=== PATIENT | male | born 1960 | race Caucasian/White ===

== ENCOUNTER 2017-06-15 08:03 | Emergency (ER) | payer BC, OTHER ==
[2017-06-15 09:03] LABS: ADD MAN DIFF? NO
[2017-06-15 09:05] LABS: WHITE BLOOD COUNT 5.9 10^3/ul (4.8-10.8)
[2017-06-15 09:05] LABS: BASOPHILS % 0.7 % (0.0-2.0); EOSINOPHILS % 0.5 % (0.0-7.0); HEMATOCRIT 38.3 % (42.0-52.0); HEMOGLOBIN 12.4 g/dl (14.0-18.0); LYMPHOCYTES # 1.3 10^3/ul (0.8-2.9); LYMPHOCYTES % 21.3 % (15.0-51.0); MEAN CORPUSCULAR HGB CONC 32.4 g/dl (32.0-37.0); MEAN PLATELET VOLUME 9.7 fl (7.4-10.4); MONOCYTE # 0.5 10^3/ul (0.3-0.9); MONOCYTES % 8.7 % (0.0-11.0); NEUTROPHILS % 68.3 % (39.0-77.0); PLATELET COUNT 286 10^3/UL (140-415); RED BLOOD COUNT 3.87 10^6/ul (4.70-6.10); RED CELL DISTRIBUTION WIDTH 15.4 % (11.5-14.5)
[2017-06-15 09:35] LABS: ALANINE AMINOTRANSFERASE 44 IU/L (13-69); ALBUMIN 4.2 g/dl (3.3-4.9); ALBUMIN/GLOBULIN RATIO 1.44; ALKALINE PHOSPHATASE 91 IU/L (42-121); ANION GAP 15 (8-16); ASPARTATE AMINO TRANSFERASE 58 IU/L (15-46); BLOOD UREA NITROGEN 25 mg/dl (7-20); CALCIUM 8.9 mg/dl (8.4-10.2); CARBON DIOXIDE 27 mmol/L (21-31); CHLORIDE 107 mmol/L (97-110); CREATININE 1.18 mg/dl (0.61-1.24); GLUCOSE 108 mg/dl (70-220); POTASSIUM 3.4 mmol/L (3.5-5.1); SODIUM 146 mmol/L (135-144); TOTAL PROTEIN 7.1 g/dl (6.1-8.1)
[2017-06-15 09:46] LABS: B-TYPE NATRIURETIC PEPTIDE 567 PG/ML (0-125)
[2017-06-15 09:52] LABS: TROPONIN-I 0.153 ng/ml (0.00-0.12)
[2017-06-15] MEDS: ASPIRIN 81 MG TAB PO (10:19)
== END 2017-06-15 12:10 | disposition left against medical advice (07) ==
LOC: E/R 08:03
DX: I21.4 Non-ST elevation (NSTEMI) myocardial infarction (principal); R06.02 Shortness of breath
CPT/HCPCS: 36415; 71010; 80053; 83880; 84484; 85025; 93005; 99291-25

== ENCOUNTER 2017-06-28 04:18 | Inpatient (IN) | payer BC ==
[2017-06-28 05:00] LABS: ADD MAN DIFF? NO
[2017-06-28 05:01] LABS: WHITE BLOOD COUNT 7.4 10^3/ul (4.8-10.8)
[2017-06-28 05:01] LABS: BASOPHIL # 0.1 10^3/ul (0.0-0.1); BASOPHILS % 0.7 % (0.0-2.0); EOSINOPHILS # 0.1 10^3/ul (0.0-0.5); EOSINOPHILS % 0.7 % (0.0-7.0); HEMATOCRIT 36.4 % (42.0-52.0); HEMOGLOBIN 11.8 g/dl (14.0-18.0); LYMPHOCYTES % 13.7 % (15.0-51.0); MEAN CORPUSCULAR HGB CONC 32.4 g/dl (32.0-37.0); MEAN CORPUSCULAR VOLUME 98.6 fl (82.0-101.0); MEAN PLATELET VOLUME 9.9 fl (7.4-10.4); MONOCYTE # 0.6 10^3/ul (0.3-0.9); MONOCYTES % 8.5 % (0.0-11.0); NEUTROPHIL # 5.7 10^3/ul (1.6-7.5); NEUTROPHILS % 75.9 % (39.0-77.0); PLATELET COUNT 269 10^3/UL (140-415); RED BLOOD COUNT 3.69 10^6/ul (4.70-6.10); RED CELL DISTRIBUTION WIDTH 14.9 % (11.5-14.5)
[2017-06-28 05:22] LABS: ANION GAP 13 (8-16); BLOOD UREA NITROGEN 20 mg/dl (7-20); CALCIUM 8.3 mg/dl (8.4-10.2); CARBON DIOXIDE 26 mmol/L (21-31); CHLORIDE 110 mmol/L (97-110); CREATININE 0.96 mg/dl (0.61-1.24); GLUCOSE 95 mg/dl (70-220); POTASSIUM 3.2 mmol/L (3.5-5.1); SODIUM 146 mmol/L (135-144)
[2017-06-28 05:34] LABS: TROPONIN-I 0.038 ng/ml (0.00-0.12)
[2017-06-28] MEDS ORDERED: NACL 0.9% 3 ML SYG IV (06:00)
[2017-06-28] MEDS: POTASSIUM CHLORIDE (SR) 20 MEQ TAB PO (06:04)
[2017-06-28 08:17] LABS: CHOL/HDL RATIO 5.7 RATIO; HDL CHOLESTEROL 33 mg/dl (30-78); LDL CHOLESTEROL,CALCULATED 145 mg/dl; TRIGLYCERIDES 60 mg/dl (0-149)
[2017-06-28 08:17] LABS: CHOLESTEROL 190 mg/dl (100-200)
[2017-06-28 08:18] LABS: HEMOGLOBIN A1C 5.2 % (0-5.9)
[2017-06-28 08:49] LABS: THYROID STIMULATING HORMONE 0.551 MIU/L (0.465-4.680)
[2017-06-28] MEDS: METOPROLOL (XL) 50 MG TAB PO (08:50)
[2017-06-28] MEDS: LISINOPRIL 10 MG TAB PO ×2 (08:50→20:32)
[2017-06-28] MEDS: ASPIRIN 81 MG TAB PO (10:44)
[2017-06-28] MEDS ORDERED: IODIXANOL LOCM 100 ML BTL (11:17)
[2017-06-28] MEDS ORDERED: MIDAZOLAM 1 MG/ML 2 ML INJ ×2 (11:17→12:35)
[2017-06-28] MEDS ORDERED: LIDOCAINE 1% (MDV) 20 ML INJ (11:17)
[2017-06-28] MEDS ORDERED: FENTAnyl 50 MCG/ML VIAL (11:17)
[2017-06-28] MEDS ORDERED: AMLODIPINE 5 MG TAB PO (11:30)
[2017-06-28] MEDS ORDERED: VERAPAMIL 5 MG INJ (11:35)
[2017-06-28] MEDS ORDERED: NITROGLYCERIN (IC) 100 MCG/ML INJ (11:35)
[2017-06-28 11:46] LABS: D-DIMER 503.04 ng/ml (<460)
[2017-06-28 11:48] LABS: CREATINE KINASE 51 IU/L (23-200)
[2017-06-28 11:57] LABS: ANION GAP 11 (8-16); BLOOD UREA NITROGEN 18 mg/dl (7-20); CALCIUM 8.6 mg/dl (8.4-10.2); CARBON DIOXIDE 23 mmol/L (21-31); CHLORIDE 114 mmol/L (97-110); CREATININE 0.86 mg/dl (0.61-1.24); GLUCOSE 121 mg/dl (70-220); POTASSIUM 3.2 mmol/L (3.5-5.1); SODIUM 145 mmol/L (135-144)
[2017-06-28 11:59] LABS: CK INDEX 1.5; TROPONIN-I 0.051 ng/ml (0.00-0.12)
[2017-06-28 12:08] LABS: TROPONIN-I 0.064 ng/ml (0.00-0.12)
[2017-06-28 12:10] LABS: CK-MB 0.75 ng/ml (0.0-2.4)
[2017-06-28] MEDS: SOD CHLORIDE 0.9% 1,000 ML IV (13:04)
[2017-06-28] MEDS: METOPROLOL 25 MG TAB PO ×2 (14:15→20:33)
[2017-06-28] MEDS: hydrALAzine 20 MG INJ IV (14:44)
[2017-06-28] MEDS: ACETAMINOPHEN 325 MG TAB PO (16:58)
[2017-06-28] MEDS: NITROGLYCERIN (SL) 0.4 MG TAB SL (19:45)
[2017-06-28] MEDS: ATORVASTATIN 80 MG TAB PO (20:32)
[2017-06-28] MEDS: ISOSORBIDE DINITRATE 5 MG TAB PO (20:33)
[2017-06-29 07:20] LABS: ADD MAN DIFF? NO
[2017-06-29 07:23] LABS: WHITE BLOOD COUNT 5.4 10^3/ul (4.8-10.8)
[2017-06-29 07:23] LABS: BASOPHILS % 0.6 % (0.0-2.0); EOSINOPHILS % 0.4 % (0.0-7.0); HEMATOCRIT 34.5 % (42.0-52.0); HEMOGLOBIN 11.2 g/dl (14.0-18.0); LYMPHOCYTES # 1.3 10^3/ul (0.8-2.9); MEAN CORPUSCULAR HEMOGLOBIN 31.6 pg (29.0-33.0); MEAN CORPUSCULAR HGB CONC 32.5 g/dl (32.0-37.0); MEAN CORPUSCULAR VOLUME 97.5 fl (82.0-101.0); MEAN PLATELET VOLUME 9.6 fl (7.4-10.4); MONOCYTE # 0.6 10^3/ul (0.3-0.9); MONOCYTES % 11.2 % (0.0-11.0); NEUTROPHIL # 3.5 10^3/ul (1.6-7.5); NEUTROPHILS % 64.4 % (39.0-77.0); PLATELET COUNT 243 10^3/UL (140-415); RED BLOOD COUNT 3.54 10^6/ul (4.70-6.10)
[2017-06-29 07:41] LABS: ALANINE AMINOTRANSFERASE 47 IU/L (13-69); ALBUMIN 3.4 g/dl (3.3-4.9); ALBUMIN/GLOBULIN RATIO 1.41; ALKALINE PHOSPHATASE 58 IU/L (42-121); ANION GAP 11 (8-16); ASPARTATE AMINO TRANSFERASE 18 IU/L (15-46); BILIRUBIN,INDIRECT 0.1 mg/dl (0-1.1); BILIRUBIN,TOTAL 0.1 mg/dl (0.2-1.3); BLOOD UREA NITROGEN 20 mg/dl (7-20); CALCIUM 8.3 mg/dl (8.4-10.2); CARBON DIOXIDE 25 mmol/L (21-31); CHLORIDE 112 mmol/L (97-110); GLUCOSE 103 mg/dl (70-220); SODIUM 145 mmol/L (135-144); TOTAL PROTEIN 5.8 g/dl (6.1-8.1)
[2017-06-29] MEDS: METOPROLOL 25 MG TAB PO ×3 (09:13→20:43)
[2017-06-29] MEDS: ASPIRIN 81 MG TAB PO (09:13)
[2017-06-29] MEDS: POTASSIUM CHLORIDE (SR) 20 MEQ TAB PO ×2 (09:13→13:04)
[2017-06-29] MEDS: ISOSORBIDE DINITRATE 5 MG TAB PO ×3 (09:13→20:42)
[2017-06-29] MEDS: LISINOPRIL 10 MG TAB PO ×2 (09:14→20:44)
[2017-06-29] MEDS: ACETAMINOPHEN 325 MG TAB PO (18:21)
[2017-06-29] MEDS: ATORVASTATIN 80 MG TAB PO (20:39)
[2017-06-30] MEDS: hydrALAzine 20 MG INJ IV (00:10)
[2017-06-30] MEDS: NITROGLYCERIN (SL) 0.4 MG TAB SL ×9 (02:26→19:04)
[2017-06-30] MEDS: morphine 2 MG INJ IV (03:34)
[2017-06-30] MEDS: morphine 4 MG/ML VIAL IV (05:47)
[2017-06-30 07:24] LABS: TROPONIN-I 0.158 ng/ml (0.00-0.12)
[2017-06-30] MEDS: ASPIRIN 81 MG TAB PO (08:27)
[2017-06-30] MEDS: ISOSORBIDE DINITRATE 5 MG TAB PO ×2 (08:27→13:09)
[2017-06-30] MEDS: LISINOPRIL 10 MG TAB PO ×2 (08:27→21:44)
[2017-06-30] MEDS: METOPROLOL 25 MG TAB PO ×3 (08:30→21:45)
[2017-06-30 10:51] LABS: ADD MAN DIFF? NO
[2017-06-30 10:53] LABS: WHITE BLOOD COUNT 6.2 10^3/ul (4.8-10.8)
[2017-06-30 10:53] LABS: BASOPHILS % 0.6 % (0.0-2.0); EOSINOPHILS % 0.2 % (0.0-7.0); HEMATOCRIT 33.4 % (42.0-52.0); LYMPHOCYTES # 0.9 10^3/ul (0.8-2.9); LYMPHOCYTES % 15.1 % (15.0-51.0); MEAN CORPUSCULAR HEMOGLOBIN 32.3 pg (29.0-33.0); MEAN CORPUSCULAR HGB CONC 32.9 g/dl (32.0-37.0); MEAN CORPUSCULAR VOLUME 97.9 fl (82.0-101.0); MEAN PLATELET VOLUME 10.1 fl (7.4-10.4); MONOCYTE # 0.6 10^3/ul (0.3-0.9); NEUTROPHIL # 4.6 10^3/ul (1.6-7.5); NEUTROPHILS % 73.6 % (39.0-77.0); PLATELET COUNT 256 10^3/UL (140-415); RED BLOOD COUNT 3.41 10^6/ul (4.70-6.10)
[2017-06-30 11:23] LABS: INR 1.02; PROTIME 13.5 Sec (11.9-14.9); PT RATIO 1.1
[2017-06-30 11:24] LABS: PARTIAL THROMBOPLASTIN TIME 24.2 Sec (25.0-35.0)
[2017-06-30] MEDS: HEPARIN 1000 UNITS/ML 10 ML INJ IV ×2 (12:08→20:15)
[2017-06-30] MEDS: HEPARIN 25000 UNITS/250 ML 250 ML IV ×2 (12:09→20:21)
[2017-06-30 12:53] LABS: CREATINE KINASE 87 IU/L (23-200)
[2017-06-30 13:07] LABS: CK INDEX 0.7
[2017-06-30 13:09] LABS: TROPONIN-I 0.133 ng/ml (0.00-0.12)
[2017-06-30 15:00] LABS: ANION GAP 12 (8-16); BLOOD UREA NITROGEN 21 mg/dl (7-20); CALCIUM 8.3 mg/dl (8.4-10.2); CARBON DIOXIDE 26 mmol/L (21-31); CHLORIDE 108 mmol/L (97-110); CREATININE 0.81 mg/dl (0.61-1.24); GLUCOSE 107 mg/dl (70-220); MAGNESIUM 1.9 mg/dl (1.7-2.5); POTASSIUM 3.7 mmol/L (3.5-5.1); SODIUM 142 mmol/L (135-144)
[2017-06-30] MEDS: POTASSIUM CHLORIDE (SR) 20 MEQ TAB PO ×2 (15:38→21:43)
[2017-06-30 19:38] LABS: PARTIAL THROMBOPLASTIN TIME 40.6 Sec (25.0-35.0)
[2017-06-30] MEDS: ACETAMINOPHEN 325 MG TAB PO (20:11)
[2017-06-30] MEDS: ATORVASTATIN 80 MG TAB PO (21:43)
[2017-06-30] MEDS: ISOSORBIDE DINITRATE 10 MG TAB PO (21:44)
[2017-07-01] MEDS: morphine 2 MG INJ IV ×3 (02:28→23:07)
[2017-07-01 04:46] LABS: ANION GAP 11 (8-16); BLOOD UREA NITROGEN 17 mg/dl (7-20); CALCIUM 9.2 mg/dl (8.4-10.2); CARBON DIOXIDE 27 mmol/L (21-31); CHLORIDE 108 mmol/L (97-110); CREATININE 0.83 mg/dl (0.61-1.24); GLUCOSE 108 mg/dl (70-220); MAGNESIUM 1.9 mg/dl (1.7-2.5); POTASSIUM 4.1 mmol/L (3.5-5.1); SODIUM 142 mmol/L (135-144)
[2017-07-01] MEDS ORDERED: DOPamine-D5W 1.6 MG/ML 250 ML (07:00)
[2017-07-01 08:06] LABS: PARTIAL THROMBOPLASTIN TIME 79.1 Sec (25.0-35.0)
[2017-07-01] MEDS: ASPIRIN 81 MG TAB PO (08:10)
[2017-07-01] MEDS: ISOSORBIDE DINITRATE 10 MG TAB PO ×3 (08:15→21:00)
[2017-07-01] MEDS: METOPROLOL 25 MG TAB PO ×3 (08:16→21:00)
[2017-07-01] MEDS: LISINOPRIL 10 MG TAB PO ×2 (08:16→21:00)
[2017-07-01] MEDS ORDERED: PHENYLephrine 20MG IN 250 ML 250 ML IV (10:00)
[2017-07-01] MEDS ORDERED: EPINEPHrine 4 MG in DEXTROSE 5% 246 ML IV (10:00)
[2017-07-01] MEDS ORDERED: INSULIN HUMAN REGULAR 100 UNIT in SOD CHLORIDE 0.9% 99 ML IV (10:00)
[2017-07-01] MEDS: VANCOMYCIN 1 GM INJ (10:10)
[2017-07-01] MEDS: PAPAVERINE 60 MG INJ (10:11)
[2017-07-01] MEDS: HEPARIN 1000 UNITS/ML 10 ML INJ (10:11)
[2017-07-01] MEDS ORDERED: MIDAZOLAM 5 ML ×3 (10:49→13:21)
[2017-07-01] MEDS ORDERED: PHENYLephrine (100 MCG/ML) 5ML SYG ×2 (11:18→16:07)
[2017-07-01] MEDS ORDERED: POTASSIUM CHLORIDE 100 ML (11:41)
[2017-07-01] MEDS ORDERED: CEFAZOLIN 1 GM INJ ×2 (12:03→14:46)
[2017-07-01] MEDS ORDERED: AMINOCAPROIC ACID 5 GM INJ ×4 (12:03→14:46)
[2017-07-01] MEDS ORDERED: MANNITOL 20% 250 ML IV (12:05)
[2017-07-01] MEDS ORDERED: MAGNESIUM SULFATE (MG) 50% 10 ML INJ (12:05)
[2017-07-01] MEDS ORDERED: LIDOCAINE 100 MG SYRINGE (12:05)
[2017-07-01] MEDS ORDERED: NA BICARBONATE 8.4% 50 ML SYG ×2 (12:05→15:56)
[2017-07-01] MEDS ORDERED: PHENYLephrine 10 MG INJ ×2 (12:05→15:57)
[2017-07-01] MEDS ORDERED: CA CHLORIDE 10% 10 ML SYRINGE (12:05)
[2017-07-01] MEDS ORDERED: ALBUMIN HUMAN 25% 200 ML (12:05)
[2017-07-01] MEDS ORDERED: POTASSIUM CHLORIDE 40 MEQ INJ (12:06)
[2017-07-01] MEDS ORDERED: FUROSEMIDE 20 MG INJ ×2 (12:06→15:49)
[2017-07-01] MEDS ORDERED: HEPARIN 1000 UNITS/ML 10 ML INJ ×4 (12:06→13:31)
[2017-07-01] MEDS: POTASSIUM CHLORIDE 40 MEQ, CALCIUM CHLORIDE 10% 1 GM in DEXTROSE 5%-0.225% NACL 970 ML IV ×2 (12:30→19:32)
[2017-07-01] MEDS ORDERED: hydrALAzine 20 MG INJ (13:09)
[2017-07-01] MEDS ORDERED: HEPARIN 10,000 UNITS/ML 1 ML INJ ×2 (13:58→14:20)
[2017-07-01] MEDS ORDERED: ETOMIDATE 20 MG INJ (14:46)
[2017-07-01] MEDS ORDERED: ROCURONIUM 50 MG INJ (14:46)
[2017-07-01] MEDS ORDERED: LIDOCAINE 2% (SDV) 5 ML INJ (14:46)
[2017-07-01] MEDS ORDERED: PROTAMINE 250 MG INJ (14:51)
[2017-07-01 14:59] LABS: IMMEDIATE SPIN CROSSMATCH 1; TYPE AND SCREEN 1
[2017-07-01 15:03] LABS: IMMEDIATE SPIN CROSSMATCH 1 6
[2017-07-01] MEDS: NITROGLYCERIN 50 MG/D5W (PMX) 250 ML IV ×2 (18:17→19:25)
[2017-07-01 18:54] LABS: AADO2 Arterial 376.9 mmHg (7.0-24.0); Arterial Base Excess -3.1 mmol/L (-3.0-3); Arterial Blood Gas Oxygen Sat 94.4 mmHG (95.0-98.0); Arterial COHb 0.5 % (0.0-3.0); Arterial Fraction of Oxyhgb 93.6 % (93.0-99.0); Arterial HCO3 22.2 mmol/L (22.0-26.0); Arterial MetHb 0.3 % (0.0-1.5); Arterial Total Hemglobin 11.5 g/dl (12.0-18.0); Arterial pCO2 40.5 mmhg (35-45); MODE VENT - AC; Site A-Line
[2017-07-01] MEDS ORDERED: morphine 2 MG INJ IV (19:00)
[2017-07-01 20:11] LABS: ADD MAN DIFF? NO
[2017-07-01 20:14] LABS: WHITE BLOOD COUNT 15.7 10^3/ul (4.8-10.8)
[2017-07-01 20:14] LABS: ABNORMAL IP MESSAGE 1; BASOPHILS % 0.2 % (0.0-2.0); EOSINOPHILS % 0.1 % (0.0-7.0); HEMATOCRIT 32.1 % (42.0-52.0); HEMOGLOBIN 10.6 g/dl (14.0-18.0); LYMPHOCYTES # 0.9 10^3/ul (0.8-2.9); LYMPHOCYTES % 5.7 % (15.0-51.0); MEAN CORPUSCULAR HEMOGLOBIN 31.5 pg (29.0-33.0); MEAN CORPUSCULAR VOLUME 95.5 fl (82.0-101.0); MEAN PLATELET VOLUME 10.1 fl (7.4-10.4); MONOCYTE # 1.5 10^3/ul (0.3-0.9); MONOCYTES % 9.7 % (0.0-11.0); NEUTROPHIL # 13.2 10^3/ul (1.6-7.5); NEUTROPHILS % 83.7 % (39.0-77.0); PLATELET COUNT 219 10^3/UL (140-415); POSITIVE DIFF @See below; RED BLOOD COUNT 3.36 10^6/ul (4.70-6.10); RED CELL DISTRIBUTION WIDTH 15.4 % (11.5-14.5)
[2017-07-01 20:32] LABS: INR 1.18; PROTIME 15.2 Sec (11.9-14.9); PT RATIO 1.2
[2017-07-01 20:33] LABS: PARTIAL THROMBOPLASTIN TIME 30.9 Sec (25.0-35.0)
[2017-07-01 20:35] LABS: ANION GAP 16 (8-16); BLOOD UREA NITROGEN 14 mg/dl (7-20); CALCIUM 8.6 mg/dl (8.4-10.2); CARBON DIOXIDE 22 mmol/L (21-31); CHLORIDE 110 mmol/L (97-110); CREATININE 1.02 mg/dl (0.61-1.24); GLUCOSE 156 mg/dl (70-220); MAGNESIUM 2.4 mg/dl (1.7-2.5); SODIUM 145 mmol/L (135-144)
[2017-07-01 20:41] LABS: POTASSIUM 2.8 mmol/L (3.5-5.1)
[2017-07-01] MEDS: POTASSIUM CHLORIDE 50 ML IVPB ×3 (20:45→23:09)
[2017-07-01] MEDS ORDERED: DEXTROSE 50% 50 ML SYRINGE IV ×2 (21:00)
[2017-07-01] MEDS: ATORVASTATIN 80 MG TAB PO (21:00)
[2017-07-01] MEDS: ACCU-CHEK XX ×3 (21:00→23:00)
[2017-07-01 22:28] LABS: AADO2 Arterial 167.3 mmHg (7.0-24.0); Arterial Base Excess -2.2 mmol/L (-3.0-3); Arterial Blood Gas Oxygen Sat 93.6 mmHG (95.0-98.0); Arterial COHb 0.2 % (0.0-3.0); Arterial Fraction of Oxyhgb 93.1 % (93.0-99.0); Arterial HCO3 22.7 mmol/L (22.0-26.0); Arterial MetHb 0.3 % (0.0-1.5); Arterial Total Hemglobin 10.7 g/dl (12.0-18.0); Arterial pCO2 39.3 mmhg (35-45); Blood Gas PS 8; MODE VENT - CPAP; Site A-Line
[2017-07-01] MEDS: ALBUMIN HUMAN 5% 250 ML IV (23:21)
[2017-07-01] MEDS: INSULIN HUMAN REGULAR 100 UNIT in SOD CHLORIDE 0.9% 99 ML IV (23:40)
[2017-07-02] MEDS: morphine 2 MG INJ IV ×7 (00:11→18:12)
[2017-07-02] MEDS: hydrALAzine 20 MG INJ IV (00:12)
[2017-07-02] MEDS: ACCU-CHEK XX ×8 (00:22→07:10)
[2017-07-02] MEDS: NITROGLYCERIN 50 MG/D5W (PMX) 250 ML IV (00:24)
[2017-07-02] MEDS: INSULIN HUMAN REGULAR 100 UNIT in SOD CHLORIDE 0.9% 99 ML IV ×4 (00:31→06:02)
[2017-07-02 01:15] LABS: POTASSIUM 3.8 mmol/L (3.5-5.1)
[2017-07-02 01:15] LABS: MAGNESIUM 2.3 mg/dl (1.7-2.5)
[2017-07-02] MEDS: POTASSIUM CHLORIDE 50 ML IVPB ×3 (01:43→03:33)
[2017-07-02] MEDS: LISINOPRIL 10 MG TAB PO ×2 (02:01→20:36)
[2017-07-02] MEDS: ISOSORBIDE DINITRATE 10 MG TAB PO ×2 (02:01→12:50)
[2017-07-02] MEDS: METOPROLOL 25 MG TAB PO ×2 (02:02→12:51)
[2017-07-02] MEDS: NITROGLYCERIN (SL) 0.4 MG TAB SL ×2 (03:44→03:56)
[2017-07-02] MEDS ORDERED: ONDANSETRON 4 MG INJ (03:51)
[2017-07-02 05:49] LABS: ADD MAN DIFF? NO
[2017-07-02 06:06] LABS: ABNORMAL IP MESSAGE 1; BASOPHILS % 0.2 % (0.0-2.0); EOSINOPHILS % 0.1 % (0.0-7.0); HEMATOCRIT 30.3 % (42.0-52.0); LYMPHOCYTES # 0.5 10^3/ul (0.8-2.9); MEAN CORPUSCULAR HEMOGLOBIN 31.8 pg (29.0-33.0); MEAN CORPUSCULAR VOLUME 96.5 fl (82.0-101.0); MEAN PLATELET VOLUME 10.8 fl (7.4-10.4); MONOCYTE # 1.5 10^3/ul (0.3-0.9); MONOCYTES % 12.3 % (0.0-11.0); NEUTROPHILS % 83.1 % (39.0-77.0); PLATELET COUNT 200 10^3/UL (140-415); POSITIVE DIFF @See below; RED BLOOD COUNT 3.14 10^6/ul (4.70-6.10)
[2017-07-02 06:06] LABS: WHITE BLOOD COUNT 12.1 10^3/ul (4.8-10.8)
[2017-07-02 06:19] LABS: INR 1.15; PARTIAL THROMBOPLASTIN TIME 33.7 Sec (25.0-35.0); PROTIME 14.9 Sec (11.9-14.9); PT RATIO 1.2
[2017-07-02 06:49] LABS: ANION GAP 12 (8-16); BLOOD UREA NITROGEN 16 mg/dl (7-20); CALCIUM 8.8 mg/dl (8.4-10.2); CARBON DIOXIDE 26 mmol/L (21-31); CHLORIDE 113 mmol/L (97-110); CREATININE 0.95 mg/dl (0.61-1.24); GLUCOSE 121 mg/dl (70-220); MAGNESIUM 2.3 mg/dl (1.7-2.5); POTASSIUM 4.4 mmol/L (3.5-5.1); SODIUM 147 mmol/L (135-144)
[2017-07-02] MEDS: ASPIRIN 81 MG TAB PO (09:00)
[2017-07-02 09:03] LABS: MODE VENT - AC; MetHgb Mixed Venous 0.3 %; Mixed Venous Base Excess -4.2 mmol/L; Mixed Venous COHb 0.3 %; Mixed Venous Fraction OxyHgb 78.5 %; Mixed Venous Total Hemglobin 10.7 g/dl; Sample Type Blood venous; Site VENOUS LINE
[2017-07-02] MEDS: HYDROCODONE/APAP (5/325) TAB PO ×2 (11:18→20:04)
[2017-07-02] MEDS: ONDANSETRON 4 MG INJ IV (11:36)
[2017-07-02 18:52] LABS: HEMATOCRIT 28.8 % (42.0-52.0)
[2017-07-02] MEDS: ATORVASTATIN 80 MG TAB PO (20:36)
[2017-07-02] MEDS ORDERED: METOPROLOL 25 MG TAB PO (21:00)
[2017-07-02] MEDS: POTASSIUM CHLORIDE 40 MEQ, CALCIUM CHLORIDE 10% 1 GM in DEXTROSE 5%-0.225% NACL 970 ML IV (21:50)
[2017-07-02] MEDS: AMIODARONE 150MG/D5W BOLUS 100 ML IV (23:16)
[2017-07-03] MEDS: AMIODARONE 900 MG in DEXTROSE 5% 482 ML IV ×2 (00:25→19:49)
[2017-07-03] MEDS: POTASSIUM CHLORIDE 40 MEQ, CALCIUM CHLORIDE 10% 1 GM in DEXTROSE 5%-0.225% NACL 970 ML IV ×2 (01:33→08:39)
[2017-07-03] MEDS: morphine 2 MG INJ IV ×3 (03:23→21:16)
[2017-07-03 05:42] LABS: ADD MAN DIFF? NO
[2017-07-03 05:47] LABS: WHITE BLOOD COUNT 15.2 10^3/ul (4.8-10.8)
[2017-07-03 05:47] LABS: ABNORMAL IP MESSAGE 1; BASOPHILS % 0.1 % (0.0-2.0); HEMATOCRIT 37.1 % (42.0-52.0); HEMOGLOBIN 11.6 g/dl (14.0-18.0); LYMPHOCYTES # 0.9 10^3/ul (0.8-2.9); MEAN CORPUSCULAR HEMOGLOBIN 31.4 pg (29.0-33.0); MEAN CORPUSCULAR HGB CONC 31.3 g/dl (32.0-37.0); MEAN CORPUSCULAR VOLUME 100.5 fl (82.0-101.0); MEAN PLATELET VOLUME 10.6 fl (7.4-10.4); MONOCYTE # 1.8 10^3/ul (0.3-0.9); MONOCYTES % 11.8 % (0.0-11.0); NEUTROPHIL # 12.4 10^3/ul (1.6-7.5); NEUTROPHILS % 81.7 % (39.0-77.0); PLATELET COUNT 216 10^3/UL (140-415); POSITIVE DIFF @See below; RED BLOOD COUNT 3.69 10^6/ul (4.70-6.10); RED CELL DISTRIBUTION WIDTH 15.9 % (11.5-14.5)
[2017-07-03 06:22] LABS: ANION GAP 11 (8-16); BLOOD UREA NITROGEN 25 mg/dl (7-20); CALCIUM 10.1 mg/dl (8.4-10.2); CARBON DIOXIDE 28 mmol/L (21-31); CHLORIDE 106 mmol/L (97-110); CREATININE 1.12 mg/dl (0.61-1.24); GLUCOSE 142 mg/dl (70-220); POTASSIUM 5.1 mmol/L (3.5-5.1); SODIUM 140 mmol/L (135-144)
[2017-07-03 06:38] LABS: MAGNESIUM 2.2 mg/dl (1.7-2.5)
[2017-07-03] MEDS: ONDANSETRON 4 MG INJ IV (08:39)
[2017-07-03] MEDS: ASPIRIN 81 MG TAB PO (08:40)
[2017-07-03] MEDS: LISINOPRIL 10 MG TAB PO ×2 (08:40→21:15)
[2017-07-03] MEDS: HYDROCODONE/APAP (5/325) TAB PO ×2 (12:28→16:03)
[2017-07-03] MEDS: ATORVASTATIN 80 MG TAB PO (21:15)
[2017-07-04] MEDS: HYDROCODONE/APAP (5/325) TAB PO ×4 (01:55→22:38)
[2017-07-04 05:33] LABS: ADD MAN DIFF? NO
[2017-07-04 05:37] LABS: WHITE BLOOD COUNT 13.1 10^3/ul (4.8-10.8)
[2017-07-04 05:37] LABS: ABNORMAL IP MESSAGE 1; BASOPHILS % 0.2 % (0.0-2.0); HEMATOCRIT 31.8 % (42.0-52.0); HEMOGLOBIN 10.3 g/dl (14.0-18.0); MEAN CORPUSCULAR HEMOGLOBIN 31.5 pg (29.0-33.0); MEAN CORPUSCULAR HGB CONC 32.4 g/dl (32.0-37.0); MEAN CORPUSCULAR VOLUME 97.2 fl (82.0-101.0); MEAN PLATELET VOLUME 10.5 fl (7.4-10.4); MONOCYTE # 1.5 10^3/ul (0.3-0.9); MONOCYTES % 11.8 % (0.0-11.0); NEUTROPHIL # 10.3 10^3/ul (1.6-7.5); NEUTROPHILS % 79.1 % (39.0-77.0); PLATELET COUNT 181 10^3/UL (140-415); POSITIVE DIFF @See below; RED BLOOD COUNT 3.27 10^6/ul (4.70-6.10); RED CELL DISTRIBUTION WIDTH 15.2 % (11.5-14.5)
[2017-07-04 06:08] LABS: ANION GAP 12 (8-16); BLOOD UREA NITROGEN 25 mg/dl (7-20); CALCIUM 9.2 mg/dl (8.4-10.2); CARBON DIOXIDE 25 mmol/L (21-31); CHLORIDE 106 mmol/L (97-110); CREATININE 0.93 mg/dl (0.61-1.24); GLUCOSE 117 mg/dl (70-220); MAGNESIUM 1.9 mg/dl (1.7-2.5); POTASSIUM 5.1 mmol/L (3.5-5.1); SODIUM 138 mmol/L (135-144)
[2017-07-04] MEDS: ONDANSETRON 4 MG INJ IV (07:30)
[2017-07-04] MEDS: morphine 2 MG INJ IV ×4 (07:44→19:13)
[2017-07-04] MEDS: ASPIRIN 81 MG TAB PO (09:18)
[2017-07-04] MEDS: LISINOPRIL 10 MG TAB PO ×2 (09:19→20:56)
[2017-07-04] MEDS: APIXABAN 5 MG TABLET PO (16:01)
[2017-07-04] MEDS: DIGOXIN 500 MCG INJ IV ×2 (16:02→20:09)
[2017-07-04] MEDS: DOCUSATE SODIUM 100 MG CAP PO (20:56)
[2017-07-04] MEDS: BISACODYL (EC) 5 MG TAB PO (20:56)
[2017-07-04] MEDS: ATORVASTATIN 80 MG TAB PO (20:57)
[2017-07-05] MEDS: morphine 2 MG INJ IV ×4 (04:00→15:33)
[2017-07-05 05:31] LABS: ADD MAN DIFF? NO
[2017-07-05 06:10] LABS: ANION GAP 9 (8-16); BLOOD UREA NITROGEN 28 mg/dl (7-20); CALCIUM 8.9 mg/dl (8.4-10.2); CARBON DIOXIDE 29 mmol/L (21-31); CHLORIDE 104 mmol/L (97-110); CREATININE 1.03 mg/dl (0.61-1.24); GLUCOSE 94 mg/dl (70-220); MAGNESIUM 1.8 mg/dl (1.7-2.5); POTASSIUM 4.8 mmol/L (3.5-5.1); SODIUM 137 mmol/L (135-144)
[2017-07-05 07:27] LABS: BASOPHILS % 0.2 % (0.0-2.0); EOSINOPHILS % 0.4 % (0.0-7.0); HEMATOCRIT 33.2 % (42.0-52.0); HEMOGLOBIN 10.6 g/dl (14.0-18.0); LYMPHOCYTES # 1.3 10^3/ul (0.8-2.9); LYMPHOCYTES % 12.6 % (15.0-51.0); MEAN CORPUSCULAR HEMOGLOBIN 31.8 pg (29.0-33.0); MEAN CORPUSCULAR HGB CONC 31.9 g/dl (32.0-37.0); MEAN CORPUSCULAR VOLUME 99.7 fl (82.0-101.0); MEAN PLATELET VOLUME 10.7 fl (7.4-10.4); MONOCYTE # 1.3 10^3/ul (0.3-0.9); NEUTROPHIL # 7.9 10^3/ul (1.6-7.5); PLATELET COUNT 239 10^3/UL (140-415); RED BLOOD COUNT 3.33 10^6/ul (4.70-6.10); RED CELL DISTRIBUTION WIDTH 14.8 % (11.5-14.5)
[2017-07-05 07:27] LABS: WHITE BLOOD COUNT 10.7 10^3/ul (4.8-10.8)
[2017-07-05] MEDS: ONDANSETRON 4 MG INJ IV (08:05)
[2017-07-05] MEDS: AMIODARONE 900 MG in DEXTROSE 5% 482 ML IV (08:13)
[2017-07-05] MEDS: LISINOPRIL 10 MG TAB PO ×2 (08:14→20:14)
[2017-07-05] MEDS: ASPIRIN 81 MG TAB PO (08:14)
[2017-07-05] MEDS: APIXABAN 5 MG TABLET PO ×3 (08:14→20:13)
[2017-07-05] MEDS: PANTOPRAZOLE 40 MG INJ IV (11:56)
[2017-07-05] MEDS: AMIODARONE 200 MG TAB PO ×2 (13:42→20:13)
[2017-07-05] MEDS: MAGNESIUM SULFATE 2 GM/50 ML 50 ML IVPB (14:36)
[2017-07-05] MEDS: DIGOXIN 500 MCG INJ IV (14:37)
[2017-07-05] MEDS: morphine 4 MG/ML VIAL IV (18:41)
[2017-07-05] MEDS: ATORVASTATIN 80 MG TAB PO (20:13)
[2017-07-06] MEDS: HYDROCODONE/APAP (5/325) TAB PO ×2 (00:41→17:57)
[2017-07-06] MEDS: PANTOPRAZOLE 40 MG INJ IV (05:59)
[2017-07-06] MEDS: ASPIRIN 81 MG TAB PO (09:35)
[2017-07-06] MEDS: LISINOPRIL 10 MG TAB PO ×2 (09:38→20:43)
[2017-07-06] MEDS: APIXABAN 5 MG TABLET PO ×2 (09:38→20:40)
[2017-07-06] MEDS: AMIODARONE 200 MG TAB PO ×3 (09:39→20:42)
[2017-07-06] MEDS: DOCUSATE SODIUM 100 MG CAP PO (12:50)
[2017-07-06] MEDS: morphine 2 MG INJ IV ×2 (15:13→23:25)
[2017-07-06] MEDS: ATORVASTATIN 80 MG TAB PO (20:40)
[2017-07-07] MEDS: HYDROCODONE/APAP (5/325) TAB PO ×3 (04:21→19:31)
[2017-07-07] MEDS: PANTOPRAZOLE 40 MG INJ IV (05:06)
[2017-07-07] MEDS: AMIODARONE 200 MG TAB PO ×3 (08:44→20:13)
[2017-07-07] MEDS: LISINOPRIL 10 MG TAB PO ×2 (08:44→20:12)
[2017-07-07] MEDS: APIXABAN 5 MG TABLET PO ×2 (08:44→20:09)
[2017-07-07] MEDS: ASPIRIN 81 MG TAB PO (08:44)
[2017-07-07 17:38] LABS: ADD MAN DIFF? NO
[2017-07-07 17:43] LABS: BASOPHIL # 0.1 10^3/ul (0.0-0.1); BASOPHILS % 0.6 % (0.0-2.0); EOSINOPHILS # 0.1 10^3/ul (0.0-0.5); EOSINOPHILS % 1.5 % (0.0-7.0); HEMATOCRIT 34.2 % (42.0-52.0); HEMOGLOBIN 11.3 g/dl (14.0-18.0); LYMPHOCYTES # 1.5 10^3/ul (0.8-2.9); LYMPHOCYTES % 16.9 % (15.0-51.0); MEAN CORPUSCULAR HEMOGLOBIN 31.8 pg (29.0-33.0); MEAN CORPUSCULAR VOLUME 96.3 fl (82.0-101.0); MEAN PLATELET VOLUME 9.6 fl (7.4-10.4); MONOCYTE # 1.3 10^3/ul (0.3-0.9); MONOCYTES % 14.9 % (0.0-11.0); NEUTROPHIL # 5.7 10^3/ul (1.6-7.5); NEUTROPHILS % 64.4 % (39.0-77.0); PLATELET COUNT 318 10^3/UL (140-415); RED BLOOD COUNT 3.55 10^6/ul (4.70-6.10); RED CELL DISTRIBUTION WIDTH 14.2 % (11.5-14.5)
[2017-07-07 17:43] LABS: WHITE BLOOD COUNT 8.9 10^3/ul (4.8-10.8)
[2017-07-07 18:08] LABS: ANION GAP 11 (8-16); BLOOD UREA NITROGEN 24 mg/dl (7-20); CALCIUM 8.1 mg/dl (8.4-10.2); CARBON DIOXIDE 29 mmol/L (21-31); CHLORIDE 103 mmol/L (97-110); CREATININE 1.04 mg/dl (0.61-1.24); GLUCOSE 103 mg/dl (70-220); POTASSIUM 4.2 mmol/L (3.5-5.1); SODIUM 139 mmol/L (135-144)
[2017-07-07] MEDS: ATORVASTATIN 80 MG TAB PO (20:09)
[2017-07-07] MEDS: DOCUSATE SODIUM 100 MG CAP PO (20:19)
[2017-07-08] MEDS: HYDROCODONE/APAP (5/325) TAB PO ×4 (00:08→21:19)
[2017-07-08] MEDS: BISACODYL (EC) 5 MG TAB PO (05:00)
[2017-07-08] MEDS: PANTOPRAZOLE 40 MG INJ IV (05:01)
[2017-07-08 07:30] LABS: ADD MAN DIFF? NO
[2017-07-08 07:33] LABS: BASOPHIL # 0.1 10^3/ul (0.0-0.1); BASOPHILS % 0.7 % (0.0-2.0); EOSINOPHILS # 0.2 10^3/ul (0.0-0.5); EOSINOPHILS % 1.7 % (0.0-7.0); HEMATOCRIT 33.2 % (42.0-52.0); HEMOGLOBIN 10.8 g/dl (14.0-18.0); LYMPHOCYTES # 1.6 10^3/ul (0.8-2.9); LYMPHOCYTES % 18.1 % (15.0-51.0); MEAN CORPUSCULAR HEMOGLOBIN 30.9 pg (29.0-33.0); MEAN CORPUSCULAR HGB CONC 32.5 g/dl (32.0-37.0); MEAN CORPUSCULAR VOLUME 95.1 fl (82.0-101.0); MEAN PLATELET VOLUME 9.7 fl (7.4-10.4); MONOCYTE # 1.1 10^3/ul (0.3-0.9); NEUTROPHIL # 5.7 10^3/ul (1.6-7.5); NEUTROPHILS % 65.1 % (39.0-77.0); PLATELET COUNT 321 10^3/UL (140-415); RED BLOOD COUNT 3.49 10^6/ul (4.70-6.10); RED CELL DISTRIBUTION WIDTH 14.2 % (11.5-14.5)
[2017-07-08 07:33] LABS: WHITE BLOOD COUNT 8.7 10^3/ul (4.8-10.8)
[2017-07-08 07:53] LABS: PHOSPHORUS 3.6 mg/dl (2.5-4.9)
[2017-07-08 07:54] LABS: ANION GAP 10 (8-16); BLOOD UREA NITROGEN 18 mg/dl (7-20); CARBON DIOXIDE 27 mmol/L (21-31); CHLORIDE 105 mmol/L (97-110); CREATININE 0.83 mg/dl (0.61-1.24); GLUCOSE 96 mg/dl (70-220); POTASSIUM 3.7 mmol/L (3.5-5.1); SODIUM 138 mmol/L (135-144)
[2017-07-08] MEDS: AMIODARONE 200 MG TAB PO ×3 (08:37→21:22)
[2017-07-08] MEDS: APIXABAN 5 MG TABLET PO ×2 (08:37→21:22)
[2017-07-08] MEDS: ASPIRIN 81 MG TAB PO (08:37)
[2017-07-08] MEDS: LISINOPRIL 10 MG TAB PO ×2 (08:38→21:22)
[2017-07-08] MEDS: FUROSEMIDE 20 MG INJ IV (15:50)
[2017-07-08] MEDS: POTASSIUM CHLORIDE (SR) 10 MEQ TAB PO (15:50)
[2017-07-08] MEDS: MAGNESIUM SULFATE 1 GM/D5W 100 ML IVPB (16:25)
[2017-07-08] MEDS: morphine 2 MG INJ IV (16:29)
[2017-07-08] MEDS: ATORVASTATIN 80 MG TAB PO (21:22)
[2017-07-09] MEDS: HYDROCODONE/APAP (5/325) TAB PO ×3 (02:18→18:41)
[2017-07-09] MEDS: APIXABAN 5 MG TABLET PO ×2 (08:30→20:43)
[2017-07-09] MEDS: FUROSEMIDE 40 MG TAB PO (08:30)
[2017-07-09] MEDS: AMIODARONE 200 MG TAB PO ×3 (08:31→20:43)
[2017-07-09] MEDS: LISINOPRIL 10 MG TAB PO ×2 (08:31→20:43)
[2017-07-09] MEDS: ASPIRIN 81 MG TAB PO (08:31)
[2017-07-09] MEDS: ATORVASTATIN 80 MG TAB PO (20:43)
[2017-07-10] MEDS: HYDROCODONE/APAP (5/325) TAB PO ×5 (00:08→15:12)
[2017-07-10] MEDS: ASPIRIN 81 MG TAB PO (08:44)
[2017-07-10] MEDS: FUROSEMIDE 40 MG TAB PO (08:45)
[2017-07-10] MEDS: LISINOPRIL 10 MG TAB PO (08:45)
[2017-07-10] MEDS: AMIODARONE 200 MG TAB PO ×2 (08:45→12:19)
[2017-07-10] MEDS: APIXABAN 5 MG TABLET PO (08:46)
[2017-07-10 11:03] LABS: ADD MAN DIFF? NO
[2017-07-10 11:07] LABS: WHITE BLOOD COUNT 9.1 10^3/ul (4.8-10.8)
[2017-07-10 11:07] LABS: BASOPHIL # 0.1 10^3/ul (0.0-0.1); BASOPHILS % 0.5 % (0.0-2.0); EOSINOPHILS # 0.1 10^3/ul (0.0-0.5); EOSINOPHILS % 1.2 % (0.0-7.0); HEMATOCRIT 31.9 % (42.0-52.0); HEMOGLOBIN 10.5 g/dl (14.0-18.0); LYMPHOCYTES # 1.2 10^3/ul (0.8-2.9); LYMPHOCYTES % 13.4 % (15.0-51.0); MEAN CORPUSCULAR HEMOGLOBIN 31.5 pg (29.0-33.0); MEAN CORPUSCULAR HGB CONC 32.9 g/dl (32.0-37.0); MEAN CORPUSCULAR VOLUME 95.8 fl (82.0-101.0); MEAN PLATELET VOLUME 9.5 fl (7.4-10.4); MONOCYTES % 10.6 % (0.0-11.0); NEUTROPHIL # 6.7 10^3/ul (1.6-7.5); NEUTROPHILS % 73.1 % (39.0-77.0); PLATELET COUNT 378 10^3/UL (140-415); RED BLOOD COUNT 3.33 10^6/ul (4.70-6.10); RED CELL DISTRIBUTION WIDTH 14.3 % (11.5-14.5)
[2017-07-10 11:26] LABS: ANION GAP 11 (8-16); BLOOD UREA NITROGEN 19 mg/dl (7-20); CALCIUM 8.1 mg/dl (8.4-10.2); CARBON DIOXIDE 30 mmol/L (21-31); CHLORIDE 101 mmol/L (97-110); CREATININE 1.06 mg/dl (0.61-1.24); GLUCOSE 113 mg/dl (70-220); POTASSIUM 3.6 mmol/L (3.5-5.1); SODIUM 138 mmol/L (135-144)
[2017-07-10 11:39] LABS: MAGNESIUM 1.9 mg/dl (1.7-2.5)
[2017-07-10] MEDS: POTASSIUM CHLORIDE (SR) 20 MEQ TAB PO (12:19)
[2017-07-10] MEDS: MAGNESIUM SULFATE 2 GM/50 ML 50 ML IVPB (12:20)
== END 2017-07-10 16:45 | disposition home or self-care (01) | DRG 229 ==
LOC: TEL 07-06 14:05 → E/R 04:18 → ICU 07-01 10:54 → TEL 05:52 → ICU 07-01 11:39
PROC: 0211099 Bypass Coronary Artery, Two Arteries from Left Internal Mammary with Autologous Venous Tissue, Open Approach (ICD-10-PCS; principal; 2017-06-28 11:36)
PROC: 02C00ZZ Extirpation of Matter from Coronary Artery, One Artery, Open Approach (ICD-10-PCS; 2017-06-28 11:36)
PROC: 06BQ4ZZ Excision of Left Saphenous Vein, Percutaneous Endoscopic Approach (ICD-10-PCS; 2017-06-28 11:36)
PROC: 4A023N7 Measurement of Cardiac Sampling and Pressure, Left Heart, Percutaneous Approach (ICD-10-PCS; 2017-06-28 11:36)
PROC: B211YZZ Fluoroscopy of Multiple Coronary Arteries using Other Contrast (ICD-10-PCS; 2017-06-28 11:36)
PROC: 5A1221Z Performance of Cardiac Output, Continuous (ICD-10-PCS; 2017-06-28 11:36)
PROC: 30233K1 Transfusion of Nonautologous Frozen Plasma into Peripheral Vein, Percutaneous Approach (ICD-10-PCS; 2017-06-28 11:36)
PROC: 30233N1 Transfusion of Nonautologous Red Blood Cells into Peripheral Vein, Percutaneous Approach (ICD-10-PCS; 2017-06-28 11:36)
PROC: 30233R1 Transfusion of Nonautologous Platelets into Peripheral Vein, Percutaneous Approach (ICD-10-PCS; 2017-06-28 11:36)
DX: I21.4 Non-ST elevation (NSTEMI) myocardial infarction (principal); E87.0 Hyperosmolality and hypernatremia; I42.9 Cardiomyopathy, unspecified; Z68.41 Body mass index [BMI] 40.0-44.9, adult; I25.82 Chronic total occlusion of coronary artery; I48.91 Unspecified atrial fibrillation; D64.9 Anemia, unspecified; E66.9 Obesity, unspecified; E87.6 Hypokalemia; I25.10 Atherosclerotic heart disease of native coronary artery without angina pectoris; I10 Essential (primary) hypertension; F17.210 Nicotine dependence, cigarettes, uncomplicated
CPT/HCPCS: 36415; 36430; 36592; 36600; 71045; 80048; 80053; 80061; 82550; 82553; 82803; 82962; 83036; 83735; 84100; 84132; 84443; 84484; 85014; 85025; 85378; 85610; 85730; 86850; 86900; 86901; 86920; 87081; 93005; 93306; 93312; 93325; 93458; 93880; 93970; 94002; 94770; 97110; 97116; 97163; 97530; 99217; 99285-25; G0378; J1940